=== PATIENT | male | born 1975 | race Caucasian/White ===

== ENCOUNTER 2016-12-26 14:42 | Inpatient (IN) | payer SELFPAY ==
[~2016-12-26] VITALS: Ht 180.3 cm; Wt 129.8 kg
[~2016-12-26 14:42] MED LIST: ALLOPURINOL100 MG PO; ALLOPURINOL300 MG PO; ANAPROX DS550 MG PO; BENADRYL ALLERG25 M5 PO; BIAXIN500 MG PO; CIPRODEX 0.3%-7.5 ML OT; CIPROFLOXACIN500 MG PO; CLARITIN10 MG PO; COLCHICINE0.6 MG PO; COLCRYS0.6 M1 PO; DAYPRO600 M1 PO; DIFLUCAN100 MG PO; FEOSOL300 MG PO; FEROSUL325 M1 PO; IBU-8800 MG PO; IBU800 MG PO; INDOCIN50 MG PO; KEFLEX500 MG PO; LASIX20 MG PO; LISINOPRIL AND1 TAB PO; LISINOPRIL/HYDR1 TA1 PO; MEDROL DOSEPAK4 MG PO; MOTRIN800 MG PO; MYCOSTATIN100000 U/G TP; NAPROSYN500 MG PO; PHENERGAN25 M1 PO; PREDNISONE10 MG PO; TESTOSTERO200 MG/10 IM; TESTOSTERON200 MG/ML IM; TRAMADOL HCL50 MG PO; ULTRAM50 MG PO; ZANTAC 150150 MG PO; ZITHROMAX Z PA250 MG PO
[2016-12-26 14:53] VITALS: BP 153/96
[2016-12-26 14:55] VITALS: BP 153/96
[2016-12-26 15:10] VITALS: BP 157/94
[2016-12-26 15:31] LABS: BASO % 0.5 % (0.0-1.0); EOS # 0.4 10*3/uL (0.0-0.4); EOS % 6.4 % (1.0-4.0); HEMATOCRIT 40.9 % (42.0-52.0); HEMOGLOBIN 12.8 g/dl (14.0-18.0); LYMPH # 2.4 10*3/uL (1.3-4.4); LYMPH % 38.9 % (27.0-41.0); MEAN CORPUSCULAR HGB 26.6 pg (27.0-31.0); MEAN CORPUSCULAR HGB CONC 31.3 g/dl (33.0-37.0); MEAN PLATELET VOLUME 10.2 fl (9.6-12.3); MONO # 0.5 10*3/uL (0.1-1.0); MONO % 8.1 % (3.0-9.0); NEUT # 2.8 10*3/uL (2.3-7.9); NEUT % 45.9 % (47.0-73.0); PLATELET COUNT AUTOMATED 243 10*3/uL (130-400); RED BLOOD COUNT 4.81 10*6/uL (4.50-5.90); RED CELL DISTRI WIDTH 13.2 % (0-14.5); WHITE BLOOD COUNT 6.1 10*3/uL (4.8-10.8)
[2016-12-26 15:41] LABS: PROTHROMBIN TIME 10.7 SECONDS (9.0-12.4)
[2016-12-26 15:48] LABS: ALBUMIN 3.4 gm/dl (3.1-4.5); ALKALINE PHOSPHATASE 78 U/L (45-117); BILIRUBIN, TOTAL 0.4 mg/dl (0.2-1.0); BUN 12 mg/dl (7-24); CARBON DIOXIDE 28 mmol/L (21-32); CHLORIDE 110 mmol/L (98-107); CKMB 0.9 ng/ml (0.5-3.6); CPK 83 U/L (39-308); EST GLOM FILT AFRICAN AMERICAN > 60 ml/min; GLUCOSE 91 mg/dL (65-99); MAGNESIUM 2.3 mg/dL (1.5-2.1); POTASSIUM 3.5 mmol/L (3.5-5.1); SGOT/AST 16 IU/L (3-35); SGPT/ALT 17 U/L (12-78); SODIUM 145 mmol/L (136-145); TOTAL PROTEIN 7.1 gm/dL (6.4-8.2)
[2016-12-26 15:50] LABS: TROPONIN I < 0.015 ng/ml (<0.045)
[2016-12-26 17:30] VITALS: BP 178/90
[2016-12-26 20:00] VITALS: BP 137/77
[2016-12-27] VITALS: BP 110/65
[2016-12-27 04:00] VITALS: BP 132/77
[2016-12-27 04:01] LABS: BASO # 0.1 10*3/uL (0.0-0.1); EOS # 0.3 10*3/uL (0.0-0.4); EOS % 6.3 % (1.0-4.0); MEAN CELL VOLUME 85.2 fl (80.0-94.0); MEAN CORPUSCULAR HGB 26.9 pg (27.0-31.0); MEAN CORPUSCULAR HGB CONC 31.6 g/dl (33.0-37.0); MONO # 0.5 10*3/uL (0.1-1.0); MONO % 9.6 % (3.0-9.0); NEUT # 2.2 10*3/uL (2.3-7.9); NEUT % 42.9 % (47.0-73.0); PLATELET COUNT AUTOMATED 195 10*3/uL (130-400); RED BLOOD COUNT 4.46 10*6/uL (4.50-5.90); RED CELL DISTRI WIDTH 13.2 % (0-14.5); WHITE BLOOD COUNT 5.1 10*3/uL (4.8-10.8)
[2016-12-27 04:17] LABS: BUN 13 mg/dl (7-24); CARBON DIOXIDE 29 mmol/L (21-32); CHLORIDE 110 mmol/L (98-107); EST GLOM FILT AFRICAN AMERICAN > 60 ml/min; GLUCOSE 103 mg/dL (65-99); POTASSIUM 3.5 mmol/L (3.5-5.1); SODIUM 146 mmol/L (136-145)
[2016-12-27 04:18] LABS: PROTHROMBIN TIME 10.8 SECONDS (9.0-12.4)
[2016-12-27 04:22] LABS: CHOLESTEROL 125 mg/dL (<200); FREE T4 0.98 ng/dl (0.76-1.46); HDL CHOLESTEROL 33 mg/dl (40-60); LDL CHOLESTEROL 65 mg/dL (9-159); TRIGLYCERIDES 134 mg/dl (<150); VLDL CHOLESTEROL 27 mg/dL (6-40)
[2016-12-27 04:28] LABS: HEMOGLOBIN A1c 5.3 % (4.8-5.6)
[2016-12-27 06:54] LABS: FOLIC ACID 4.05 ng/mL (>5.38); VITAMIN D, 25-HYDROXY 27.9 ng/mL (30-100)
[2016-12-27 08:00] VITALS: BP 122/80
[2016-12-27 12:00] VITALS: BP 126/76
[2016-12-27 16:00] VITALS: BP 133/81
[2016-12-27 20:00] VITALS: BP 132/68
[2016-12-28] VITALS (9 sets, daily range): BP systolic 112–159; BP diastolic 66–91
[2016-12-28 06:40] LABS: BASO % 0.6 % (0.0-1.0); EOS # 0.4 10*3/uL (0.0-0.4); EOS % 6.9 % (1.0-4.0); HEMATOCRIT 42.8 % (42.0-52.0); HEMOGLOBIN 13.3 g/dl (14.0-18.0); LYMPH # 1.9 10*3/uL (1.3-4.4); MEAN CELL VOLUME 85.8 fl (80.0-94.0); MEAN CORPUSCULAR HGB 26.7 pg (27.0-31.0); MEAN CORPUSCULAR HGB CONC 31.1 g/dl (33.0-37.0); MEAN PLATELET VOLUME 10.8 fl (9.6-12.3); MONO # 0.4 10*3/uL (0.1-1.0); MONO % 8.2 % (3.0-9.0); NEUT # 2.6 10*3/uL (2.3-7.9); NEUT % 49.1 % (47.0-73.0); PLATELET COUNT AUTOMATED 236 10*3/uL (130-400); RED BLOOD COUNT 4.99 10*6/uL (4.50-5.90); RED CELL DISTRI WIDTH 13.2 % (0-14.5); WHITE BLOOD COUNT 5.4 10*3/uL (4.8-10.8)
[2016-12-28 07:06] LABS: BUN 14 mg/dl (7-24); CARBON DIOXIDE 32 mmol/L (21-32); CHLORIDE 108 mmol/L (98-107); EST GLOM FILT AFRICAN AMERICAN > 60 ml/min; GLUCOSE 93 mg/dL (65-99); POTASSIUM 3.8 mmol/L (3.5-5.1); SODIUM 144 mmol/L (136-145)
[2016-12-28] MEDS ORDERED: ASPIRIN ADULT L81 M2 PO (14:51)
[2016-12-28] MEDS ORDERED: NATURE'S BLEND F1 MG PO (14:51)
[2016-12-28] MEDS ORDERED: ATORVASTATIN CA80 M1 PO (14:51)
[2016-12-28] MEDS ORDERED: D-1000 185 MG-11 TAB PO (14:51)
[2016-12-28] MEDS ORDERED: PERCOCET 325 MG1 TA6 PO (16:24)
[2016-12-29 00:10] LABS: PROTEIN S, FREE 56 % (57-157); PROTEIN S, TOTAL 84 % (60-150); PTT-LA 37.2 sec (0.0-43.6)
[2016-12-30 18:06] LABS: LUPUS REFLEX INTERPRETATION Comment: (.)
== END 2016-12-28 16:58 | disposition home or self-care (01) | DRG 69 ==
LOC: ED 14:42 → EDHOLD 16:34 → 4E 17:03
PROVIDERS: Emergency Medicine; Internal Medicine Hospice and Palliative Medicine
DX: G45.9 Transient cerebral ischemic attack, unspecified (principal); E87.0 Hyperosmolality and hypernatremia; I50.32 Chronic diastolic (congestive) heart failure; I25.10 Atherosclerotic heart disease of native coronary artery without angina pectoris; J45.909 Unspecified asthma, uncomplicated; R51 Headache; E66.01 Morbid (severe) obesity due to excess calories; H50.9 Unspecified strabismus; E55.9 Vitamin D deficiency, unspecified; E53.8 Deficiency of other specified B group vitamins; E83.41 Hypermagnesemia; D64.9 Anemia, unspecified; H91.8X2 Other specified hearing loss, left ear; R00.1 Bradycardia, unspecified; Z86.73 Personal history of transient ischemic attack (TIA), and cerebral infarction without residual deficits; I25.2 Old myocardial infarction; Z86.718 Personal history of other venous thrombosis and embolism; Z88.0 Allergy status to penicillin; Z82.49 Family history of ischemic heart disease and other diseases of the circulatory system; Z83.3 Family history of diabetes mellitus; Z82.0 Family history of epilepsy and other diseases of the nervous system; Z82.3 Family history of stroke; Z88.1 Allergy status to other antibiotic agents; Z88.6 Allergy status to analgesic agent; Z79.899 Other long term (current) drug therapy; Z68.37 Body mass index [BMI] 37.0-37.9, adult